=== PATIENT | female | born 2000 | race Caucasian/White ===

== ENCOUNTER 2023-03-03 21:38 | Emergency (ER) | payer OTHER ==
[~2023-03-03] VITALS: Ht 149.9 cm; Wt 43.2 kg
[2023-03-03 22:01] VITALS: BP 108/63
[2023-03-04 05:53] LABS: HIV ANTIBODY 1&2 RAPID NON-REACTIVE (Neg)
== END 2023-03-03 23:33 | disposition home or self-care (01) ==
LOC: ER 21:47
DX: Z77.21 Contact with and (suspected) exposure to potentially hazardous body fluids (principal); Z79.899 Other long term (current) drug therapy; W46.1XXA Contact with contaminated hypodermic needle, initial encounter; Y93.89 Activity, other specified; Y92.89 Other specified places as the place of occurrence of the external cause; Y99.8 Other external cause status
CPT/HCPCS: 36415; 80074; 86703; 99283